=== PATIENT | male | born 1965 | race Caucasian/White ===

== ENCOUNTER → 2017-10-09 11:46 | Outpatient (CLI) | payer BC, SELFPAY | PROVIDERS: PCP Family Medicine; Visit Provider Internal Medicine | DX: M79.2 Neuralgia and neuritis, unspecified (principal) | CPT/HCPCS: 95885; 95909 ==

== ENCOUNTER → 2018-01-02 09:05 | Outpatient (CLI) | payer OTHER, SELFPAY ==
[2018-01-02 09:55] LABS: Add Manual Diff / Slide Review NO; Eosinophils Percent Auto 6.7 % (2-4); Hematocrit 45.5 % (41-53); Hemoglobin 16.1 g/dL (13.5-17.5); Lymphocytes Percent Auto 36.3 % (25-40); Mean Corpuscular HGB Conc 35.4 % (30-36); Mean Corpuscular Hemoglobin 33.2 PG (26-34); Mean Corpuscular Volume 93.6 fL (80-100); Monocytes Percent Auto 7.2 % (3-14); Neutrophils Absolute Auto 2400 /uL (3000-5900); Neutrophils Percent Auto 48.8 % (50-75); Platelet Count 158 X10^3/uL (150-400); Red Blood Cell Count 4.86 X10^6/uL (4.5-5.9)
[2018-01-02 10:25] LABS: Alanine Aminotransferase 39 IU/L (21-72); Albumin 4.3 g/dL (3.5-5.0); Albumin Globulin Ratio 1.7 (1.0-2.8); Alkaline Phosphatase 40 U/L (38-126); Aspartate Aminotransferase 29 IU/L (17-59); Bilirubin Total 0.8 mg/dL (0.2-1.3); Blood Urea Nitrogen 22 mg/dL (9-20); Calcium 9.3 mg/dL (8.4-10.2); Carbon Dioxide 30 mmol/L (22-32); Chloride 103 mmol/L (98-107); Cholesterol 212 mg/dL (140-199); Estimated Glomerular Filt Rate > 60.0 mL/min (>60); Globulin 2.6 g/dL (1.7-4.1); Glucose 117 mg/dL (70-100); HDL Cholesterol 55 mg/dL (40-60); HEMOLYSIS < 15 (0-50); LDL Cholesterol Calculated 108 mg/dL (<100); Potassium 4.4 mmol/L (3.4-5.1); Sodium 141 mmol/L (137-145); Total Protein 6.9 g/dL (6.3-8.2); Triglycerides 244 mg/dL (35-150)
[2018-01-02 10:30] LABS: Erythrocyte Sedimentation Rate 1 MM/HR (0-15)
[2018-01-02 10:32] LABS: Hemoglobin A1C% w Est Avg Glu 5.5 % (4.0-6.0)
[2018-01-02 10:52] LABS: TSH w/ Reflex to FT4 4.02 uIU/mL (0.47-4.68)
[2018-01-02 11:11] LABS: Vitamin B12 371 pg/mL (239-931)
[2018-01-02 15:35] LABS: Creatinine Urine Random 175.7 mg/dL
[2018-01-02 15:37] LABS: Microalbumi Creatinin Ratio Ur 7.9 ug/mg CR (<30); Microalbumin Urine Random 1.4 mg/dL (0-1.6)
== END ==
PROVIDERS: Visit Provider Registered Nurse
DX: E66.9 Obesity, unspecified (principal); G62.9 Polyneuropathy, unspecified; R03.0 Elevated blood-pressure reading, without diagnosis of hypertension
CPT/HCPCS: 36415; 80053; 80061; 82043; 82570; 82607; 83036; 84443; 85025; 85651

== ENCOUNTER → 2018-08-11 11:57 | Outpatient (CLI) | payer OTHER, SELFPAY ==
[2018-08-11 12:26] LABS: Hemoglobin A1C% w Est Avg Glu 5.5 % (4.0-6.0)
[2018-08-11 12:35] LABS: Cholesterol 195 mg/dL (140-199); HDL Cholesterol 35 mg/dL (40-60); LDL Cholesterol Calculated 139 mg/dL (<100); Triglycerides 104 mg/dL (35-150)
== END ==
PROVIDERS: Visit Provider Registered Nurse
DX: R73.9 Hyperglycemia, unspecified (principal); E78.5 Hyperlipidemia, unspecified
CPT/HCPCS: 36415; 80061; 83036

== ENCOUNTER → 2018-09-09 08:40 | Outpatient (CLI) | payer OTHER, SELFPAY ==
[2018-09-09 09:46] LABS: Add Manual Diff / Slide Review NO; Basophils Absolute Auto 100 /uL (0-100); Basophils Percent Auto 1.1 % (0-2); Eosinophils Absolute Auto 500 /uL (0-450); Eosinophils Percent Auto 10.1 % (2-4); Hematocrit 46.7 % (41-53); Hemoglobin 15.8 g/dL (13.5-17.5); Lymphocytes Absolute Auto 1800 /uL (1100-4500); Lymphocytes Percent Auto 39.7 % (25-40); Mean Corpuscular HGB Conc 33.9 % (30-36); Mean Corpuscular Hemoglobin 31.7 PG (26-34); Mean Corpuscular Volume 93.6 fL (80-100); Monocytes Absolute Auto 300 /uL (0-900); Monocytes Percent Auto 7.5 % (3-14); Neutrophils Absolute Auto 1900 /uL (1500-7000); Neutrophils Percent Auto 41.6 % (50-75); Platelet Count 177 X10^3/uL (150-400); Red Blood Cell Count 4.98 X10^6/uL (4.5-5.9); White Blood Cell Count 4.6 X10^3/uL (4.5-11.0)
[2018-09-09 09:54] LABS: Alanine Aminotransferase 31 IU/L (21-72); Albumin 4.6 g/dL (3.5-5.0); Albumin Globulin Ratio 1.5 (1.0-2.8); Alkaline Phosphatase 43 U/L (38-126); Aspartate Aminotransferase 27 IU/L (17-59); Bilirubin Total 1.2 mg/dL (0.2-1.3); Blood Urea Nitrogen 23 mg/dL (9-20); Calcium 9.5 mg/dL (8.4-10.2); Carbon Dioxide 29 mmol/L (22-32); Chloride 101 mmol/L (98-107); Creatine Kinase 93 U/L (55-170); Estimated Glomerular Filt Rate > 60.0 mL/min (>60); Globulin 3.1 g/dL (1.7-4.1); Glucose 116 mg/dL (70-100); Potassium 4.2 mmol/L (3.4-5.1); Sodium 138 mmol/L (137-145); Total Protein 7.7 g/dL (6.3-8.2)
[2018-09-09 10:27] LABS: Thyroid Stimulating Hormone 4.37 uIU/mL (0.47-4.68)
[2018-09-09 10:29] LABS: Erythrocyte Sedimentation Rate 1 MM/HR (0-15)
[2018-09-09 10:45] LABS: C-Reactive Protein Quant 0.5 mg/dL (<1.0); HEMOLYSIS < 15 (0-50)
[2018-09-09 13:04] LABS: Prostate Specific Antigen Scrn 0.987 ng/mL (0.1-4.0)
[2018-09-09 13:22] LABS: Vitamin B12 407 pg/mL (239-931)
== END ==
PROVIDERS: PCP Internal Medicine; Visit Provider Internal Medicine
DX: E78.5 Hyperlipidemia, unspecified (principal); R25.2 Cramp and spasm; R73.9 Hyperglycemia, unspecified; Z12.5 Encounter for screening for malignant neoplasm of prostate
CPT/HCPCS: 36415; 80053; 82550; 82607; 84439; 84443; 85025; 85651; 86140; G0103

== ENCOUNTER 2019-09-20 11:36 | Emergency (ER) | payer OTHER, SELFPAY ==
[2019-09-20 11:43] VITALS: BP 173/98; PULSE 73; RESP 14; TEMP 36.7; O2SAT 99
--- NOTE | 2019-09-20 19:28 | ED.GENADULT ---
HPI - General Adult General Chief complaint: Hypertension Stated complaint: High blood pressure Source: patient Mode of arrival: Ambulatory Limitations: no limitations History of Present Illness HPI narrative: The patient was not seen or evaluated by myself. He left without being interviewed or examined. His left without treatment. Related Data Home Medications Medication Instructions Recorded Confirmed budesonide-formoterol [Symbicort] 1 inh INH BID #0 04/24/17 10/13/18 naproxen sodium 220 mg capsule 220 mg PO DAILY cap 10/13/18 10/13/18 Previous Rx's Medication Instructions Recorded typhoid vaccin,live,attenuated 2 See Rx Instructions PO .COMPLEX #4 07/13/19 billion unit capsule,delayed cap release Allergies Allergy/AdvReac Type Severity Reaction Status Date / Time No Known Drug Allergies Allergy Verified 09/20/19 11:46 Patient History Medical History (Updated 09/20/19 @ 14:57 by Reena Desai RN) Chronic headaches (Chronic 2014) History of adenomatous polyp of colon (Inactive) Hyperglycemia (Chronic 11/02/15) Hyperlipidemia (Resolved 11/02/15) Mild intermittent asthma without complication (Chronic 11/02/15) Social History Smoking Status: Former smoker alcohol intake: former substance use type: does not use Smoking Status: Former smoker alcohol intake frequency: a few times a week Substance Use Type: does not use Exam Initial Vital Signs Initial Vital Signs: Vital Signs Temperature 98.1 F 09/20/19 11:43 Pulse Rate 73 09/20/19 11:43 Respiratory Rate 14 09/20/19 11:43 Blood Pressure 173/98 H 09/20/19 11:43 Pulse Oximetry 99 09/20/19 11:43 Course Vital Signs Vital signs: Vital Signs - 8 hr 09/20/19 11:43 Temperature 98.1 F Pulse Rate 73 Respiratory Rate 14 Blood Pressure 173/98 H Pulse Oximetry 99 Discharge Plan Departure Patient Disposition: Left Without Being Seen Clinical Impression: Patient left without being seen Discharge Date/Time: 09/20/19 14:57
== END 2019-09-20 14:57 | disposition left against medical advice (07) ==
PROVIDERS: Emergency Provider Emergency Medicine; PCP Internal Medicine
CPT/HCPCS: 99281

== ENCOUNTER → 2019-09-22 10:17 | Outpatient (CLI) | payer OTHER, SELFPAY ==
[2019-09-22 11:01] LABS: Add Manual Diff / Slide Review NO; Basophils Absolute Auto 0 /uL (0-100); Basophils Percent Auto 0.7 % (0-2); Eosinophils Absolute Auto 200 /uL (0-450); Eosinophils Percent Auto 4.3 % (2-4); Hematocrit 48.3 % (41-53); Hemoglobin 16.3 g/dL (13.5-17.5); Lymphocytes Absolute Auto 2000 /uL (1100-4500); Lymphocytes Percent Auto 35.6 % (25-40); Mean Corpuscular HGB Conc 33.8 % (30-36); Mean Corpuscular Hemoglobin 31.8 PG (26-34); Mean Corpuscular Volume 94.2 fL (80-100); Monocytes Absolute Auto 400 /uL (0-900); Monocytes Percent Auto 6.3 % (3-14); Neutrophils Absolute Auto 3000 /uL (1500-7000); Neutrophils Percent Auto 53.1 % (50-75); Platelet Count 191 X10^3/uL (150-400); Red Blood Cell Count 5.13 X10^6/uL (4.5-5.9); Red Cell Distribution Width 13.5 % (11.6-14.8); White Blood Cell Count 5.6 X10^3/uL (4.5-11.0)
[2019-09-22 11:27] LABS: Erythrocyte Sedimentation Rate 1 MM/HR (0-15)
[2019-09-22 11:30] LABS: Alanine Aminotransferase 43 IU/L (<50); Albumin 4.7 g/dL (3.5-5.0); Albumin Globulin Ratio 1.5 (1.0-2.8); Alkaline Phosphatase 38 U/L (38-126); Aspartate Aminotransferase 37 IU/L (17-59); BUN Creatinine Ratio 16.4 (6-22); Bilirubin Total 1.2 mg/dL (0.2-1.3); Blood Urea Nitrogen 18 mg/dL (9-20); Calcium 9.6 mg/dL (8.4-10.2); Carbon Dioxide 29 mmol/L (22-32); Chloride 102 mmol/L (98-107); Cholesterol 212 mg/dL (140-199); Estimated Glomerular Filt Rate > 60.0 mL/min (>60); Globulin 3.2 g/dL (1.7-4.1); Glucose 119 mg/dL (70-100); HDL Cholesterol 38 mg/dL (40-60); HEMOLYSIS 22 (0-50); LDL Cholesterol Calculated 142 mg/dL (<100); Potassium 4.7 mmol/L (3.4-5.1); Sodium 140 mmol/L (137-145); Total Protein 7.9 g/dL (6.3-8.2); Triglycerides 161 mg/dL (35-150)
[2019-09-22 11:36] LABS: C-Reactive Protein Quant < 0.5 mg/dL (<1.0)
[2019-09-22 11:38] LABS: Free T4, Direct Thyroxine 1.12 ng/dL (0.78-2.19)
[2019-09-22 11:50] LABS: Prostate Specific Antigen Scrn 1.14 ng/mL (0.1-4.0)
[2019-09-22 11:52] LABS: Thyroid Stimulating Hormone 2.76 uIU/mL (0.47-4.68)
== END ==
PROVIDERS: PCP Internal Medicine; Referring Provider Internal Medicine; Visit Provider Internal Medicine
DX: Z13.220 Encounter for screening for lipoid disorders (principal); Z13.6 Encounter for screening for cardiovascular disorders; Z12.5 Encounter for screening for malignant neoplasm of prostate; I10 Essential (primary) hypertension; J45.20 Mild intermittent asthma, uncomplicated; R73.9 Hyperglycemia, unspecified
CPT/HCPCS: 36415; 80053; 80061; 84439; 84443; 85025; 85651; 86140; G0103

== ENCOUNTER 2019-12-11 00:50 | Emergency (ER) | payer OTHER, SELFPAY ==
[2019-12-11] VITALS (9 sets, daily range): BP systolic 120–160; BP diastolic 71–95; PULSE 60–77; RESP 13–17; TEMP 36.7; O2SAT 96–100; BMI 31.0
--- NOTE | 2019-12-11 00:54 | ED_ITS ---
HPI - General Adult General Chief complaint: Chest Pain Stated complaint: state blood out of control, chest pain Time Seen by Provider: 12/11/19 00:54 History of Present Illness HPI narrative: 54-year-old gentleman with essential hypertension diagnosed in September of this year. He was initially started on lisinopril and after a month noted significant tinnitus and this was discontinued in October. With exercise, decreased salt dietary changes he was able to get his blood pressure down to the 135/80 range. By mid November he notes that the blood pressures were creeping up and he was seen by his primary care physician and prescribed a medication similar to lisinopril and after a single dose noted the return of tenderness. Medications were again discontinued and again blood pressures began to creep up. 48 hours ago he spoke with his primary care physician who started him on amlodipine 10 mg. Patient had some time to do some reading and decided that the higher dose was more than he probably needed so yesterday took 5 mg of amlodipine in the morning and was feeling somewhat better but by the afternoon noticed the blood pressures continued to increase to a high of 160/90 in the afternoon. At that point he took an additional 5 mg of amlodipine. Continued anxiety over the course of the evening and complaints of slight chest tightness brought him to the emergency room. He notes no fevers, cough, dyspnea or wheezing. Complains of mild chest tightness associated with anxiety related to his blood pressure, no orthopnea, no lower extremity edema, no acute neurologic findings or complaints, no overt chest pain or increasing edema. Related Data Previous Rx's Medication Instructions Recorded amlodipine 10 mg tablet 10 mg PO DAILY #30 tab 12/09/19 Allergies Allergy/AdvReac Type Severity Reaction Status Date / Time lisinopril AdvReac Intermediate Ringing in Verified 10/05/19 10:20 Ears olmesartan AdvReac Ringing in Verified 12/09/19 09:26 ears Review of Systems Review of Systems Narrative: Remainder of review of systems including constitutional, ENT, cardiovascular, respiratory, GI, , musculoskeletal, skin, neurologic and psychiatric systems reviewed and are unremarkable except as noted in HPI. Patient History Medical History Chronic headaches (Chronic 2014) Essential hypertension (Acute) History of adenomatous polyp of colon (Inactive) Hyperglycemia (Chronic 11/02/15) Hyperlipidemia (Resolved 11/02/15) Mild intermittent asthma without complication (Chronic 11/02/15) Family History Father Valvular heart disease History of aortic valve replacement Social History Smoking Status: Former smoker alcohol intake: former substance use type: does not use Smoking Status: Former smoker alcohol intake frequency: a few times a week Substance Use Type: does not use Exam Narrative Exam Narrative: General: Healthy appearing, in no acute distress. Able to give a complete and coherent history. Well-nourished well-developed HEENT: Moist mucous membranes, normal sclera with reactive pupils, Neck: No JVD, supple Respiratory: Lungs are clear to auscultation, no wheezing no rales no rhonchi. Full and symmetrical air movement Cardiac: Regular rate and rhythm no murmurs no bruits Abdomen: Soft nontender good bowel tones, no flank pain Skin: Warm and dry, no rashes Neurologic: Grossly neurologically intact with no obvious asymmetries or abnormalities Extremities: No trauma, well perfused Psych: Cooperative, appropriate insight and affect Initial Vital Signs Initial Vital Signs: Vital Signs Pulse Rate 73 12/11/19 00:56 Pulse Oximetry 99 12/11/19 00:56 Course Orders Ordered: ED Orders 12/11/19 01:15 Complete Blood Count AUTO DIFF Stat Comprehensive Metabolic Panel Stat Lipase Stat Partial Thromboplastin Time Stat Prothrombin Time INR Stat Troponin & CK Cardiac Panel Stat 12/11/19 01:25 XR chest 1V Stat EKG-12 Lead Stat Vital Signs Vital signs: Vital Signs - 8 hr 12/11/19 00:56 12/11/19 01:00 12/11/19 01:05 Temperature 98.1 F Pulse Rate 73 66 77 Respiratory Rate 16 Blood Pressure 153/87 H Pulse Oximetry 99 98 100 12/11/19 01:12 12/11/19 01:30 12/11/19 01:31 Temperature Pulse Rate 73 64 66 Respiratory Rate 17 15 Blood Pressure 160/95 H 140/75 Pulse Oximetry 97 97 98 12/11/19 02:00 12/11/19 02:30 12/11/19 03:00 Temperature Pulse Rate 60 61 62 Respiratory Rate 15 16 13 Blood Pressure 120/79 122/71 122/75 Pulse Oximetry 96 96 96 Medical Decision Making Medical Records Medical records reviewed: Yes I reviewed the patient's medical records. Lab Data Lab results reviewed: Yes I reviewed the patient's lab results. Result diagrams: 12/11/19 01:15 12/11/19 01:15 Labs: Lab Results 12/11/19 12/11/19 12/11/19 Range/Units 01:15 01:15 01:15 WBC 5.2 (4.5-11.0) X10^3/uL RBC 4.72 (4.5-5.9) X10^6/uL Hgb 15.1 (13.5-17.5) g/dL Hct 44.3 (41-53) % MCV 93.8 (80-100) fL MCH 32.0 (26-34) PG MCHC 34.2 (30-36) % RDW 14.4 (11.6-14.8) % Plt Count 182 (150-400) X10^3/uL Neut % (Auto) 48.6 L (50-75) % Lymph % (Auto) 36.5 (25-40) % [place] % (Auto) 7.4 (3-14) % Eos % (Auto) 6.8 H (2-4) % Baso % (Auto) 0.7 (0-2) % Neut # (Auto) 2500 (3536-0113) /uL Lymph # (Auto) 1900 (7723-5237) /uL [place] # (Auto) 400 (0-900) /uL Eos # (Auto) 400 (0-450) /uL Baso # (Auto) 0 (0-100) /uL PT 11.5 (10.1-12.7) SECONDS INR 1.0 (0.9-1.3) APTT 32 (26.4-36.2) SECONDS Sodium 137 (137-145) mmol/L Potassium 3.7 (3.4-5.1) mmol/L Chloride 104 (98-107) mmol/L Carbon Dioxide 26 (22-32) mmol/L BUN 18 (9-20) mg/dL Creatinine 1.03 (0.66-1.25) mg/dL Estimated GFR > 60.0 (>60) mL/min BUN/Creatinine Ratio 17.5 (6-22) Glucose 108 H (70-100) mg/dL Calcium 9.4 (8.4-10.2) mg/dL Total Bilirubin 1.5 H (0.2-1.3) mg/dL AST 34 (17-59) IU/L ALT 26 (<50) IU/L Alkaline Phosphatase 50 (38-126) U/L Total Creatine Kinase 98 (55-170) U/L CK-MB (CK-2) TNP CK-MB (CK-2) Rel Index TNP Troponin I < 0.012 (0.01-0.034) ng/mL Total Protein 7.1 (6.3-8.2) g/dL Albumin 4.4 (3.5-5.0) g/dL Globulin 2.7 (1.7-4.1) g/dL Albumin/Globulin Ratio 1.6 (1.0-2.8) Lipase 68 (23-300) U/L Imaging Data Chest x-ray: Attestation: I personally reviewed and interpreted this imaging study as follows: My Impression: Normal chest x-ray without infiltrate or cardiomegaly. ECG Data Attestation: I personally reviewed and interpreted this ECG as follows: Interpretation: Sinus rhythm at a rate of 66 Left axis deviation with incomplete right bundle branch block No acute ischemic changes MDM Narrative Medical decision making narrative: 54-year-old gentleman with concerns regarding blood pressure. Blood pressure on arrival was 153/87 and continued to decrease in was 122/75 discharge. No secondary symptoms of severe or uncontrolled hypertension. Reassurance is given regarding normal workup at this point. Recommended allowing the 10 mg of amlodipine to get to pharmacologic steady state prior to checking any blood pressures again. He will be following up with Dr. Yepez and we reviewed signs and symptoms of stroke acute coronary syndrome and how they can be related to hypertensive emergencies. He is safe for home discharge Discharge Plan Departure Patient Disposition: Home Clinical Impression: Essential hypertension Discharge Date/Time: 12/11/19 03:21 Instructions: DI for High Blood Pressure Activity Restrictions/Additional Instructions: Thank you for coming in today. Your blood pressure was elevated when he got here however over the course of your arm urgency room visit is come down nicely as the amlodipine you took this afternoon is working. You had a thorough workup in the emergency department and your blood work, x-ray and EKG were all very reassuring. There is no evidence of acute heart damage or kidney damage. There certainly is an anxiety component to the elevated blood pressures you are having. Now that we have looked to prove that the higher blood pressures and not causing significant emergent damage, I am going to suggest that you take the 10 mg of amlodipine once a day for a full 5 days to get to consistent level in your blood stream before you begin rechecking blood pressures. By Friday, please check your blood pressure once a day only and typically a few hours after your morning blood pressure dose is going to be the most useful measure. Reasons to return to the emergency room include significantly elevated blood pr essure (greater than 200/100) and acute symptoms of chest pain, shortness of breath, severe headache with numbness tingling or difficulty in functioning or thinking. Please schedule follow-up with Dr. Yepez. Prescriptions: No Action amlodipine 10 mg tablet 10 mg PO DAILY Qty: 30 RF: 3 Referrals: Kishor Yepez MD [Primary Care Provider] -
--- NOTE | 2019-12-11 01:25 | DI.RAD.S_ITS ---
PROCEDURE: XR CHEST 1V INDICATIONS: chest pain TECHNIQUE: One view of the chest was acquired. COMPARISON: [facility], CR, CHEST 2 VIEW, 07/21/2012, 0:30. [facility], CT, THORAX WITHOUT CONTRAST, 08/11/2012, 8:23. [facility], CR, CHEST 2 VIEW, 10/03/2015, 15:24. FINDINGS: Surgical changes and devices: None. Lungs and pleura: Lungs are clear. No pleural effusions or pneumothorax. Mediastinum: Mediastinal contours appear normal. Heart size is normal. Bones and chest wall: No suspicious bony lesions. Age-appropriate bony degenerative changes are seen. Overlying soft tissues appear unremarkable. IMPRESSION: Plain film study within normal limits for age. Dictated by: Man Amaral M.D. on 12/11/2019 at 7:44 Approved by: Man Amaral M.D. on 12/11/2019 at 7:45
[2019-12-11 01:33] LABS: Add Manual Diff / Slide Review NO; Basophils Absolute Auto 0 /uL (0-100); Basophils Percent Auto 0.7 % (0-2); Eosinophils Absolute Auto 400 /uL (0-450); Eosinophils Percent Auto 6.8 % (2-4); Hematocrit 44.3 % (41-53); Hemoglobin 15.1 g/dL (13.5-17.5); Lymphocytes Absolute Auto 1900 /uL (1100-4500); Lymphocytes Percent Auto 36.5 % (25-40); Mean Corpuscular HGB Conc 34.2 % (30-36); Mean Corpuscular Volume 93.8 fL (80-100); Monocytes Absolute Auto 400 /uL (0-900); Monocytes Percent Auto 7.4 % (3-14); Neutrophils Absolute Auto 2500 /uL (1500-7000); Neutrophils Percent Auto 48.6 % (50-75); Platelet Count 182 X10^3/uL (150-400); Prothrombin Time 11.5 SECONDS (10.1-12.7); Red Blood Cell Count 4.72 X10^6/uL (4.5-5.9); Red Cell Distribution Width 14.4 % (11.6-14.8); White Blood Cell Count 5.2 X10^3/uL (4.5-11.0)
[2019-12-11 01:35] LABS: PTT Partial Thromboplastin Tim 32 SECONDS (26.4-36.2)
[2019-12-11 01:37] LABS: Alanine Aminotransferase 26 IU/L (<50); Albumin 4.4 g/dL (3.5-5.0); Albumin Globulin Ratio 1.6 (1.0-2.8); Alkaline Phosphatase 50 U/L (38-126); Aspartate Aminotransferase 34 IU/L (17-59); BUN Creatinine Ratio 17.5 (6-22); Bilirubin Total 1.5 mg/dL (0.2-1.3); Blood Urea Nitrogen 18 mg/dL (9-20); Calcium 9.4 mg/dL (8.4-10.2); Carbon Dioxide 26 mmol/L (22-32); Chloride 104 mmol/L (98-107); Creatine Kinase 98 U/L (55-170); Estimated Glomerular Filt Rate > 60.0 mL/min (>60); Globulin 2.7 g/dL (1.7-4.1); Glucose 108 mg/dL (70-100); HEMOLYSIS 22 (0-50); Lipase 68 U/L (23-300); Potassium 3.7 mmol/L (3.4-5.1); Sodium 137 mmol/L (137-145); Total Protein 7.1 g/dL (6.3-8.2)
[2019-12-11 01:49] LABS: Troponin I < 0.012 ng/mL (0.01-0.034)
--- NOTE | 2019-12-11 02:21 | PC.NURSE ---
Pt states prescription of amlodipine is 10mg daily. Took half tab in AM because was worried about side effects. When blood pressure was increasing, in PM, to second half of a 10mg tab.
== END 2019-12-11 03:21 | disposition home or self-care (01) ==
PROVIDERS: Emergency Provider Emergency Medicine; PCP Internal Medicine
DX: I11.0 Hypertensive heart disease with heart failure (principal); R07.9 Chest pain, unspecified
CPT/HCPCS: 36415; 71045; 80053; 82550; 83690; 84484; 85025; 85610; 85730; 99284

== ENCOUNTER → 2020-03-02 09:48 | Outpatient (CLI) | payer OTHER, SELFPAY ==
[2020-03-02 11:19] LABS: BUN Creatinine Ratio 18.4 (6-22); Blood Urea Nitrogen 19 mg/dL (9-20); Calcium 9.1 mg/dL (8.4-10.2); Carbon Dioxide 31 mmol/L (22-32); Chloride 103 mmol/L (98-107); Estimated Glomerular Filt Rate > 60.0 mL/min (>60); Glucose 124 mg/dL (70-100); HEMOLYSIS < 15 (0-50); Potassium 4.2 mmol/L (3.4-5.1); Sodium 139 mmol/L (137-145)
== END ==
PROVIDERS: PCP Internal Medicine; Referring Provider Internal Medicine Cardiovascular Disease; Visit Provider Internal Medicine Cardiovascular Disease
DX: I10 Essential (primary) hypertension (principal)
CPT/HCPCS: 36415; 80048

== ENCOUNTER → 2020-04-26 12:47 | Outpatient (CLI) | payer OTHER, SELFPAY ==
--- NOTE | 2020-04-26 | DI.US.S_ITS ---
PROCEDURE: US RENAL COMPLETE INDICATIONS: Essential (primary) hypertension TECHNIQUE: Real-time scanning was performed of the kidneys and bladder, with image documentation. COMPARISON: None. FINDINGS: Kidneys: Kidneys are normal in size. Right kidney measures 11.1 cm long; left kidney measures 10.9 cm long. Right renal cortical thickness is 2.6 cm; left renal cortical thickness is 1.6 cm. Renal cortical echotexture is normal. No hydronephrosis. Prominent column of [place] within the left kidney. There are bilateral punctate echogenic foci presumably nephrolithiasis. Bladder: Pre-void bladder volume is 119 mL. Post-void residual is 12 mL. Pre-void images demonstrate no intraluminal masses or stones. On pre-void images, both of the ureteral jets are noted with color Doppler interrogation. (Of note, ureteral jets may not be detectable in up to 25% of cases due to insufficient differences in specific gravity between ureteral and bladder urine). Miscellaneous: No free pelvic fluid. IMPRESSION: Suspect nonobstructive bilateral nephrolithiasis, which could be confirmed with CT KUB as clinically necessary. Presumed prominent hypertrophied column of [place] involving the left kidney (favored over mass). If clinically suspicious, a follow-up ultrasound could be performed in 6 months to demonstrate stability Dictated by: Isiah Miller M.D. on 04/26/2020 at 14:50 Approved by: Isiah Miller M.D. on 04/26/2020 at 14:57
== END ==
PROVIDERS: PCP Internal Medicine; Referring Provider Internal Medicine; Visit Provider Internal Medicine Cardiovascular Disease
DX: I10 Essential (primary) hypertension (principal)
CPT/HCPCS: 76770

== ENCOUNTER → 2020-05-16 09:06 | Outpatient (CLI) | payer OTHER, SELFPAY ==
[2020-05-16 10:21] LABS: Add Manual Diff / Slide Review NO; Basophils Absolute Auto 100 /uL (0-100); Basophils Percent Auto 1.5 % (0-2); Eosinophils Absolute Auto 400 /uL (0-450); Eosinophils Percent Auto 8.3 % (2-4); Hemoglobin 15.3 g/dL (13.5-17.5); Lymphocytes Absolute Auto 1800 /uL (1100-4500); Lymphocytes Percent Auto 39.3 % (25-40); Mean Corpuscular Hemoglobin 32.1 PG (26-34); Mean Corpuscular Volume 94.4 fL (80-100); Monocytes Absolute Auto 300 /uL (0-900); Monocytes Percent Auto 6.6 % (3-14); Neutrophils Absolute Auto 2100 /uL (1500-7000); Neutrophils Percent Auto 44.3 % (50-75); Platelet Count 164 X10^3/uL (150-400); Red Blood Cell Count 4.77 X10^6/uL (4.5-5.9); Red Cell Distribution Width 13.7 % (11.6-14.8); White Blood Cell Count 4.7 X10^3/uL (4.5-11.0)
[2020-05-16 10:28] LABS: Hemoglobin A1C% w Est Avg Glu 5.5 % (4.0-6.0)
[2020-05-16 10:35] LABS: Alanine Aminotransferase 27 IU/L (<50); Albumin 4.1 g/dL (3.5-5.0); Albumin Globulin Ratio 1.4 (1.0-2.8); Alkaline Phosphatase 40 U/L (38-126); Aspartate Aminotransferase 31 IU/L (17-59); BUN Creatinine Ratio 15.2 (6-22); Bilirubin Total 0.9 mg/dL (0.2-1.3); Blood Urea Nitrogen 16 mg/dL (9-20); Calcium 9.1 mg/dL (8.4-10.2); Carbon Dioxide 32 mmol/L (22-32); Chloride 102 mmol/L (98-107); Cholesterol 170 mg/dL (140-199); Estimated Glomerular Filt Rate > 60.0 mL/min (>60); Glucose 101 mg/dL (70-100); HDL Cholesterol 47 mg/dL (40-60); HEMOLYSIS 31 (0-50); LDL Cholesterol Calculated 95 mg/dL (<100); Potassium 4.4 mmol/L (3.4-5.1); Sodium 138 mmol/L (137-145); Total Protein 7.1 g/dL (6.3-8.2); Triglycerides 140 mg/dL (35-150)
[2020-05-16 11:03] LABS: Prostate Specific Antigen Scrn 1.39 ng/mL (0.1-4.0)
== END ==
PROVIDERS: PCP Family Medicine; Referring Provider Family Medicine; Visit Provider Family Medicine
DX: I10 Essential (primary) hypertension (principal); R73.01 Impaired fasting glucose; R73.9 Hyperglycemia, unspecified; Z12.5 Encounter for screening for malignant neoplasm of prostate
CPT/HCPCS: 36415; 80053; 80061; 83036; 85025; G0103

== ENCOUNTER → 2020-06-19 12:46 | Outpatient (CLI) | payer OTHER, SELFPAY ==
[2020-06-19 14:18] LABS: Cortisol Random 9.75 ug/dL
[2020-06-27 05:49] LABS: Renin Activity 0.665 ng/mL/hr (0.167-5.380)
== END ==
PROVIDERS: PCP Family Medicine; Referring Provider Internal Medicine Cardiovascular Disease; Visit Provider Internal Medicine Cardiovascular Disease
DX: I10 Essential (primary) hypertension (principal)
CPT/HCPCS: 36415; 82088; 82384; 82533; 84244

== ENCOUNTER → 2020-12-12 07:18 | Outpatient (CLI) | payer OTHER, SELFPAY ==
[2020-12-12 08:48] LABS: Alanine Aminotransferase 27 IU/L (<50); Albumin 3.9 g/dL (3.5-5.0); Albumin Globulin Ratio 1.6 (1.0-2.8); Alkaline Phosphatase 39 U/L (38-126); Aspartate Aminotransferase 28 IU/L (17-59); BUN Creatinine Ratio 20.8 (6-22); Bilirubin Total 0.7 mg/dL (0.2-1.3); Blood Urea Nitrogen 21 mg/dL (9-20); Calcium 9.2 mg/dL (8.4-10.2); Carbon Dioxide 30 mmol/L (22-32); Chloride 103 mmol/L (98-107); Cholesterol 169 mg/dL (140-199); Estimated Glomerular Filt Rate > 60.0 mL/min (>60); Globulin 2.5 g/dL (1.7-4.1); Glucose 117 mg/dL (70-100); HDL Cholesterol 50 mg/dL (40-60); HEMOLYSIS < 15 (0-50); LDL Cholesterol Calculated 92 mg/dL (<100); Potassium 4.4 mmol/L (3.4-5.1); Sodium 140 mmol/L (137-145); Total Protein 6.4 g/dL (6.3-8.2); Triglycerides 136 mg/dL (35-150)
[2020-12-12 09:13] LABS: Creatinine Urine Random 141.5 mg/dL
[2020-12-12 09:18] LABS: Microalbumin Urine Random < 0.6 mg/dL (0-1.6)
== END ==
PROVIDERS: PCP Family Medicine; Referring Provider Family Medicine; Visit Provider Family Medicine
DX: I10 Essential (primary) hypertension (principal); R73.9 Hyperglycemia, unspecified
CPT/HCPCS: 36415; 80053; 80061; 82043; 82570; 84443

== ENCOUNTER → 2022-03-13 08:23 | Outpatient (CLI) | payer OTHER, SELFPAY ==
[2022-03-13 10:21] LABS: Add Manual Diff / Slide Review NO; Basophils Absolute Auto 0 /uL (0-100); Eosinophils Absolute Auto 300 /uL (0-450); Eosinophils Percent Auto 7.2 % (2-4); Hematocrit 45.9 % (41-53); Hemoglobin 15.4 g/dL (13.5-17.5); Lymphocytes Absolute Auto 1400 /uL (1100-4500); Lymphocytes Percent Auto 35.1 % (25-40); Mean Corpuscular HGB Conc 33.6 % (30-36); Mean Corpuscular Hemoglobin 31.7 PG (26-34); Mean Corpuscular Volume 94.3 fL (80-100); Monocytes Absolute Auto 400 /uL (0-900); Monocytes Percent Auto 9.8 % (3-14); Neutrophils Absolute Auto 1900 /uL (1500-7000); Neutrophils Percent Auto 46.9 % (50-75); Platelet Count 171 X10^3/uL (150-400); Red Blood Cell Count 4.87 X10^6/uL (4.5-5.9); Red Cell Distribution Width 14.3 % (11.6-14.8)
[2022-03-13 10:33] LABS: Hemoglobin A1C% w Est Avg Glu 5.2 % (4.0-6.0)
[2022-03-13 10:52] LABS: Alanine Aminotransferase 29 IU/L (<50); Albumin 4.3 g/dL (3.5-5.0); Albumin Globulin Ratio 1.7 (1.0-2.8); Alkaline Phosphatase 44 U/L (38-126); Aspartate Aminotransferase 26 IU/L (17-59); BUN Creatinine Ratio 21.3 (6-22); Blood Urea Nitrogen 23 mg/dL (9-20); Calcium 9.1 mg/dL (8.4-10.2); Carbon Dioxide 27 mmol/L (22-32); Chloride 102 mmol/L (98-107); Cholesterol 172 mg/dL (140-199); Estimated Glomerular Filt Rate > 60 mL/min (>60); Globulin 2.6 g/dL (1.7-4.1); Glucose 103 mg/dL (70-100); HDL Cholesterol 60 mg/dL (40-60); HEMOLYSIS < 15 (0-50); LDL Cholesterol Calculated 97 mg/dL (<100); Potassium 4.4 mmol/L (3.4-5.1); Sodium 140 mmol/L (137-145); Total Protein 6.9 g/dL (6.3-8.2); Triglycerides 77 mg/dL (35-150)
[2022-03-13 11:16] LABS: TSH w/ Reflex to FT4 2.97 uIU/mL (0.47-4.68)
[2022-03-13 11:17] LABS: Creatinine Urine Random 137.3 mg/dL
[2022-03-13 11:20] LABS: Microalbumin Urine Random < 0.6 mg/dL (0-1.6)
[2022-03-13 11:23] LABS: Prostate Specific Antigen Scrn 1.16 ng/mL (0.1-4.0)
== END ==
PROVIDERS: PCP Family Medicine; Referring Provider Family Medicine; Visit Provider Family Medicine
DX: Z12.5 Encounter for screening for malignant neoplasm of prostate (principal); G89.29 Other chronic pain; I10 Essential (primary) hypertension; J45.20 Mild intermittent asthma, uncomplicated; R51.9 Headache, unspecified; R73.01 Impaired fasting glucose; R73.9 Hyperglycemia, unspecified; N52.9 Male erectile dysfunction, unspecified; R68.82 Decreased libido
CPT/HCPCS: 36415; 80053; 80061; 82043; 82570; 83036; 84402; 84403; 84443; 85025; G0103

== ENCOUNTER → 2023-07-18 08:41 | Outpatient (CLI) | payer OTHER, SELFPAY ==
[2023-07-18 09:56] LABS: Add Manual Diff / Slide Review NO; Basophils Absolute Auto 0 /uL (0-100); Basophils Percent Auto 0.9 % (0-2); Eosinophils Absolute Auto 300 /uL (0-450); Eosinophils Percent Auto 5.2 % (2-4); Hematocrit 43.7 % (41-53); Lymphocytes Absolute Auto 1600 /uL (1100-4500); Lymphocytes Percent Auto 32.6 % (25-40); Mean Corpuscular HGB Conc 34.2 % (30-36); Mean Corpuscular Hemoglobin 31.9 PG (26-34); Mean Corpuscular Volume 93.4 fL (80-100); Monocytes Absolute Auto 400 /uL (0-900); Monocytes Percent Auto 7.4 % (3-14); Neutrophils Absolute Auto 2600 /uL (1500-7000); Neutrophils Percent Auto 53.9 % (50-75); Platelet Count 194 X10^3/uL (150-400); Red Blood Cell Count 4.68 X10^6/uL (4.5-5.9); Red Cell Distribution Width 14.6 % (11.6-14.8); White Blood Cell Count 4.8 X10^3/uL (4.5-11.0)
[2023-07-18 10:00] LABS: Hemoglobin A1C% w Est Avg Glu 5.3 % (4.0-6.0)
[2023-07-18 10:06] LABS: Alanine Aminotransferase 23 IU/L (<50); Albumin 4.3 g/dL (3.5-5.0); Albumin Globulin Ratio 1.5 (1.0-2.8); Alkaline Phosphatase 45 U/L (38-126); Aspartate Aminotransferase 26 IU/L (17-59); Blood Urea Nitrogen 22 mg/dL (9-20); Calcium 9.5 mg/dL (8.4-10.2); Carbon Dioxide 29 mmol/L (22-32); Chloride 104 mmol/L (98-107); Cholesterol 186 mg/dL (140-199); Estimated Glomerular Filt Rate > 60 mL/min (>60); Gamma Glutamyl Transpeptidase 15 U/L (15-73); Globulin 2.9 g/dL (1.7-4.1); Glucose 110 mg/dL (70-100); HDL Cholesterol 67 mg/dL (40-60); HEMOLYSIS < 15 (0-50); LDL Cholesterol Calculated 103 mg/dL (<100); Phosphorous 3.4 mg/dL (2.5-4.5); Potassium 4.3 mmol/L (3.4-5.1); Sodium 138 mmol/L (137-145); Total Protein 7.2 g/dL (6.3-8.2); Triglycerides 79 mg/dL (35-150)
[2023-07-18 10:09] LABS: High Sensitivity CRP - Cardiac 1.6 mg/L (1.0-3.0)
[2023-07-18 10:12] LABS: Appearance Urine UA CLEAR; Bilirubin Urine UA NEGATIVE (NEGATIVE); Color Urine UA YELLOW; Glucose Urine UA NEGATIVE (Negative); Ketones Urine UA NEGATIVE (NEGATIVE); Leukocyte Esterase Urine UA NEGATIVE (NEGATIVE); Nitrite Urine UA NEGATIVE (Negative); Occult Blood Urine UA NEGATIVE (Negative); Protein Urine UA NEGATIVE (Negative); Urine Volume 10mL (spun); Urobilinogen Urine UA 0.2 E.U./dL (0.2); pH Urine UA 5.5 (4.5-8.0)
[2023-07-18 10:13] LABS: Bacteria Urine None Seen; Culture Indicated Urine Cult Not Indicated; RBC Urine None Seen (0-5/HPF); Squamous Epithelial Cell Urine None Seen (0-5/HPF); WBC Urine None Seen (0-5/HPF)
[2023-07-18 10:27] LABS: Erythrocyte Sedimentation Rate 1 MM/HR (0-15)
[2023-07-18 10:35] LABS: Prostate Specific Antigen Scrn 1.22 ng/mL (0.1-4.0)
[2023-07-18 10:39] LABS: Ferritin 275 ng/mL (18-464)
[2023-07-18 10:49] LABS: TSH w/ Reflex to FT4 3.02 uIU/mL (0.47-4.68)
[2023-07-18 10:57] LABS: Microalbumin Urine Random < 0.6 mg/dL (0-1.6)
[2023-07-22 04:44] LABS: Apolipoprotein B 85 mg/dL (<90); Homocysteine 10.6 umol/L (0.0-14.5)
[2023-07-22 08:14] LABS: C Peptide 1.5 ng/mL (1.1-4.4)
[2023-07-25 14:09] LABS: Insulin Level Total 3.6 uIU/mL (2.6-24.9)
[2023-07-26 17:40] LABS: Percent Free Testosterone 3.85 % (1.50-4.20); Testosterone Free 16.03 ng/dL (5.00-21.00); Testosterone Total 416.4 ng/dL (264.0-916.0)
== END ==
PROVIDERS: PCP Family Medicine; Referring Provider Family Medicine; Visit Provider Family Medicine
DX: Z00.00 Encounter for general adult medical examination without abnormal findings (principal); R73.01 Impaired fasting glucose; J45.20 Mild intermittent asthma, uncomplicated; I10 Essential (primary) hypertension; R68.82 Decreased libido; N52.9 Male erectile dysfunction, unspecified; Z12.5 Encounter for screening for malignant neoplasm of prostate
CPT/HCPCS: 36415; 80053; 80061; 81001; 82043; 82172; 82570; 82627; 82728; 82977; 83036; 83090; 83525; 83735; 84100; 84402; 84403; 84443; 84681; 85025; 85651; 86140; G0103

== ENCOUNTER 2023-11-07 10:53 | Emergency (ER) | payer OTHER, SELFPAY ==
--- NOTE | 2023-11-07 11:00 | DI.RAD.S_ITS ---
PROCEDURE: XR CHEST 1V INDICATIONS: chest pain TECHNIQUE: One view of the chest was acquired. COMPARISON: [facility], , XR CHEST 1V, 12/11/2019, 1:27. [facility], , CHEST 2 VIEW, 10/03/2015, 15:24. FINDINGS: Surgical changes and devices: None. Lungs and pleura: Lungs are clear. No pleural effusions or pneumothorax. Mediastinum: Mediastinal contours appear normal. Heart size is normal. Bones and chest wall: No suspicious bony lesions. Overlying soft tissues appear unremarkable. IMPRESSION: No acute cardiopulmonary abnormality is seen. Dictated by: Felipe Gallegos M.D. on 11/07/2023 at 11:40 Approved by: Felipe Gallegos M.D. on 11/07/2023 at 11:40
[2023-11-07 11:01] VITALS: BP 172/92; PULSE 72; RESP 12; TEMP 36.6; O2SAT 98; BMI 27.3
--- NOTE | 2023-11-07 11:05 | EKG_ITS ---
[place] [address] [address] [place] [id number] Test Date: 2023-11-07 Pat Name: Guillermo Fitzgerald Department: [facility] Room: Gender: Male Leadership Intern: JAIMEE : 1965 Requested By: Order Number: [id number] Reading MD: Aris Tariq Measurements Intervals [place] Rate: 64 P: 46 CA: 186 QRS: -45 QRSD: 102 T: 4 QT: 408 QTc: 420 Interpretive Statements Normal sinus rhythm Left axis deviation Minimal voltage criteria for LVH, may be normal variant ( R in aVL ) Electronically Signed On 11-09-2023 9:43:52 PDT by Aris Tariq
[2023-11-07 11:06] VITALS: PULSE 70; RESP 16; O2SAT 97
[2023-11-07] MEDS: ASPIRIN 81 MG CHEW TAB 324 MG PO (11:09)
[2023-11-07 11:13] VITALS: BP 151/85; PULSE 65; RESP 19; O2SAT 98
[2023-11-07 11:20] LABS: Add Manual Diff / Slide Review NO; Basophils Absolute Auto 0 /uL (0-100); Basophils Percent Auto 0.9 % (0-2); Eosinophils Absolute Auto 200 /uL (0-450); Eosinophils Percent Auto 4.8 % (2-4); Hematocrit 43.2 % (41-53); Hemoglobin 14.9 g/dL (13.5-17.5); Lymphocytes Absolute Auto 1700 /uL (1100-4500); Lymphocytes Percent Auto 33.5 % (25-40); Mean Corpuscular HGB Conc 34.4 % (30-36); Mean Corpuscular Hemoglobin 31.8 PG (26-34); Mean Corpuscular Volume 92.4 fL (80-100); Monocytes Absolute Auto 400 /uL (0-900); Monocytes Percent Auto 8.5 % (3-14); Neutrophils Absolute Auto 2700 /uL (1500-7000); Neutrophils Percent Auto 52.3 % (50-75); Platelet Count 199 X10^3/uL (150-400); Red Blood Cell Count 4.67 X10^6/uL (4.5-5.9); Red Cell Distribution Width 13.7 % (11.6-14.8); White Blood Cell Count 5.1 X10^3/uL (4.5-11.0)
[2023-11-07 11:30] VITALS: BP 140/80; PULSE 61; RESP 15; O2SAT 96
--- NOTE | 2023-11-07 11:33 | ED_ITS ---
HPI - Chest Pain General Chief Complaint: Chest Pain Stated Complaint: chest pain Time Seen by Provider: 11/07/23 11:04 Source: patient Mode of arrival: Ambulatory Limitations: no limitations History of Present Illness HPI narrative: 58-year-old male who is here for evaluation of approximately 7-10 days of occasional left-sided chest discomfort. He states that it is an ache. Does not worse with palpation or movement or eating. Lasts approximately 30 minutes and then resolves. He has currently not in any discomfort. No cough. No shortness of breath. No fevers. No abdominal pain. No vomiting. Has not tried anything for symptoms. No prior cardiac history. Does have a history of high blood pressure. Related Data Previous Rx's Medication Instructions Recorded chlorthalidone 25 mg tablet 12.5 mg (1/2 x 25 mg) PO DAILY #5 10/01/23 tabs Allergies Allergy/AdvReac Type Severity Reaction Status Date / Time amlodipine Allergy Intermediate horrible Verified 11/07/23 11:04 anxiety lisinopril AdvReac Intermediate Ringing in Verified 11/07/23 11:04 Ears olmesartan AdvReac Ringing in Verified 11/07/23 11:04 ears Review of Systems Review of Systems Narrative: See HPI Patient History Medical History Chronic low back pain Tinnitus of both ears Anxiety about health Screening for prostate cancer Fasting hyperglycemia Essential hypertension History of adenomatous polyp of colon Chronic headaches (2014) Mild intermittent asthma without complication (11/02/15) Hyperlipidemia (11/02/15) Hyperglycemia (11/02/15) Surgical History (Updated 05/11/20 @ 12:11 by Francisco Valles DO) Hx of tonsillectomy Family History (Updated 05/11/20 @ 12:13 by Francisco Valles DO) Father Valvular heart disease History of aortic valve replacement Loud snoring Sleep apnea Hypertension Family/Other Diabetes mellitus Family/Other Asperger syndrome Mother Hypothyroidism (acquired) Social History Smoking Status: Former smoker alcohol intake: former substance use type: does not use Smoking Status: Former smoker alcohol intake frequency: 0-2 drinks per day Substance Use Type: does not use Exam Initial Vital Signs Initial Vital Signs: Vital Signs Temperature 97.8 F 11/07/23 11:01 Pulse Rate 72 11/07/23 11:01 Respiratory Rate 12 11/07/23 11:01 Blood Pressure 172/92 H 11/07/23 11:01 Pulse Oximetry 98 11/07/23 11:01 Oxygen Delivery Method Room Air 11/07/23 11:01 Const General: cooperative, comfortable and No ill appearing HENMT Head: normal to inspection and normocephalic Chest Chest: No crepitus and No tenderness Resp Effort & Inspection: normal respiratory effort Auscultation: clear to auscultation bilaterally Cardio Rate: regular rate Skin General: no rashes or lesions noted Neuro General: patient alert, patient awake and moves all extremities Extrem General: No edema Scores HEART Score Heart Score history: Slightly Suspicious Heart Score EKG: Normal Heart Score Age: 45-64 years old Heart Score risk factors: 1-2 risk factors Heart Score troponin: < or = to normal limit Heart Score Total: 2 Course Orders Ordered: ED Orders 11/07/23 11:00 XR chest 1V Stat EKG-12 Lead Stat 11/07/23 11:10 Complete Blood Count AUTO DIFF Stat Comprehensive Metabolic Panel Stat Lipase Stat Magnesium Stat NT-proBNP (BNP-Adult 18+) Stat PTT Partial Thromboplastin [place] Stat Prothrombin Time INR Stat Troponin & CK Cardiac Panel Stat Discontinued Medications Aspirin (Aspirin 81 Mg Chew Tab) 324 mg PO NOW ONE Stop: 11/07/23 11:01 Last Admin: 11/07/23 11:09 Dose: 324 mg Documented By: CARLOS MANUEL Vital Signs Vital signs: Vital Signs - 8 hr 11/07/23 11:01 11/07/23 11:06 11/07/23 11:13 Temperature 97.8 F Pulse Rate 72 70 65 Respiratory Rate 12 16 19 Blood Pressure 172/92 H Pulse Oximetry 98 97 98 Oxygen Delivery Method Room Air 11/07/23 11:13 11/07/23 11:30 11/07/23 11:30 Temperature Pulse Rate 61 Respiratory Rate 15 Blood Pressure 151/85 H 140/80 Pulse Oximetry 96 Oxygen Delivery Method 11/07/23 12:00 11/07/23 12:00 Temperature Pulse Rate 59 L Respiratory Rate 16 Blood Pressure 138/76 Pulse Oximetry 96 Oxygen Delivery Method MDM - Chest Pain Lab Data Attestation: I reviewed the patient's lab results. 11/07/23 11:10 11/07/23 11:10 Labs: Lab Results 11/07/23 Range/Units 11:10 WBC 5.1 (4.5-11.0) X10^3/uL RBC 4.67 (4.5-5.9) X10^6/uL Hgb 14.9 (13.5-17.5) g/dL Hct 43.2 (41-53) % MCV 92.4 (80-100) fL MCH 31.8 (26-34) PG MCHC 34.4 (30-36) % RDW 13.7 (11.6-14.8) % Plt Count 199 (150-400) X10^3/uL Neut % (Auto) 52.3 (50-75) % Lymph % (Auto) 33.5 (25-40) % [place] % (Auto) 8.5 (3-14) % Eos % (Auto) 4.8 H (2-4) % Baso % (Auto) 0.9 (0-2) % Neut # (Auto) 2700 (5324-5801) /uL Lymph # (Auto) 1700 (9157-8431) /uL [place] # (Auto) 400 (0-900) /uL Eos # (Auto) 200 (0-450) /uL Baso # (Auto) 0 (0-100) /uL PT 11.6 (9.4-12.5) SECONDS INR 1.0 (0.9-1.3) APTT 32 (25.1-36.5) SECONDS Sodium 137 (137-145) mmol/L Potassium 3.8 (3.4-5.1) mmol/L Chloride 100 (98-107) mmol/L Carbon Dioxide 32 (22-32) mmol/L BUN 28 H (9-20) mg/dL Creatinine 1.17 (0.66-1.25) mg/dL Estimated GFR > 60 (>60) mL/min BUN/Creatinine Ratio 23.9 H (6-22) Glucose 109 (80-110) mg/dL Calcium 9.0 (8.4-10.2) mg/dL Magnesium 2.1 (1.6-2.3) mg/dL Total Bilirubin 1.2 (0.2-1.3) mg/dL AST 35 (17-59) IU/L ALT 29 (<50) IU/L Alkaline Phosphatase 41 (38-126) U/L Total Creatine Kinase 169 (55-170) U/L Troponin I < 0.012 (0.01-0.034) ng/mL NT-Pro-B Natriuret Pep < 20 (<125) pg/mL Total Protein 7.2 (6.3-8.2) g/dL Albumin 4.3 (3.5-5.0) g/dL Globulin 2.9 (1.7-4.1) g/dL Albumin/Globulin Ratio 1.5 (1.0-2.8) Lipase 111 (23-300) U/L Imaging Data Chest x-ray: Radiologist's Impression: PROCEDURE: XR CHEST 1V INDICATIONS: chest pain TECHNIQUE: One view of the chest was acquired. [facility], 1:27. [facility], , CHEST 2 VIEW, 10/03/2015, 15:24. FINDINGS: Surgical changes and devices: None. Lungs and pleura: Lungs are clear. No pleural effusions or pneumothorax. Mediastinum: Mediastinal contours appear normal. Heart size is normal. Bones and chest wall: No suspicious bony lesions. Overlying soft tissues appear unremarkable. IMPRESSION: No acute cardiopulmonary abnormality is seen. ECG Data Attestation: I personally reviewed and interpreted this ECG as follows: Interpretation: Sinus rhythm Ventricular rate of 64 Left axis deviation Normal QRS LVH No ST T wave changes MDM Narrative Medical decision making narrative: Nonischemic EKG. Negative troponin. Low risk heart score. Chest x-ray is unremarkable. LFTs and lipase unremarkable. Low suspicion for ACS however we have the patient contact his primary doctor to discuss further risk stratification testing to include a stress test. Patient was given return precautions and follow-up instructions. He expressed understanding and agreement. Discharge Plan Departure Patient Disposition: Home Clinical Impression: Atypical chest pain Instructions: DI for Atypical Chest Pain Activity Restrictions/Additional Instructions: Continue to take all of your medications as directed. I do recommend you contact your primary doctor to discuss further testing to include a stress test. Return to the emergency department for new or worsening symptoms. Prescriptions: No Action chlorthalidone 25 mg tablet 12.5 mg PO DAILY Qty: 5 0RF Referrals: Barry Campoverde MD [Primary Care Provider] - Stand Alone Forms: Patient Portal/API
[2023-11-07 11:34] LABS: Alanine Aminotransferase 29 IU/L (<50); Albumin 4.3 g/dL (3.5-5.0); Albumin Globulin Ratio 1.5 (1.0-2.8); Alkaline Phosphatase 41 U/L (38-126); Aspartate Aminotransferase 35 IU/L (17-59); BUN Creatinine Ratio 23.9 (6-22); Bilirubin Total 1.2 mg/dL (0.2-1.3); Blood Urea Nitrogen 28 mg/dL (9-20); Carbon Dioxide 32 mmol/L (22-32); Chloride 100 mmol/L (98-107); Creatine Kinase 169 U/L (55-170); Estimated Glomerular Filt Rate > 60 mL/min (>60); Globulin 2.9 g/dL (1.7-4.1); Glucose 109 mg/dL (80-110); HEMOLYSIS 28 (0-50); Lipase 111 U/L (23-300); Magnesium 2.1 mg/dL (1.6-2.3); Potassium 3.8 mmol/L (3.4-5.1); Sodium 137 mmol/L (137-145); Total Protein 7.2 g/dL (6.3-8.2)
[2023-11-07 11:46] LABS: NT-proBNP (BNP-Adult 18+) < 20 pg/mL (<125); Troponin I < 0.012 ng/mL (0.01-0.034)
[2023-11-07 12:00] VITALS: BP 138/76; PULSE 59; RESP 16; O2SAT 96
[2023-11-07 12:03] LABS: Prothrombin Time 11.6 SECONDS (9.4-12.5)
[2023-11-07 12:06] LABS: PTT Partial Thromboplastin Tim 32 SECONDS (25.1-36.5)
== END 2023-11-07 12:40 | disposition home or self-care (01) ==
PROVIDERS: Emergency Provider Emergency Medicine; PCP Family Medicine
DX: R07.89 Other chest pain (principal)
CPT/HCPCS: 36415; 71045; 80053; 82550; 83690; 83735; 83880; 84484; 85025; 85610; 85730; 93005; 99284

== ENCOUNTER → 2024-01-07 15:56 | Outpatient (CLI) | payer OTHER, SELFPAY ==
--- NOTE | 2024-01-07 15:57 | DI.RAD.S_ITS ---
PROCEDURE: XR KNEE RT 3V INDICATIONS: Fell 2 weeks ago - hematoma pretibial area - knee pain TECHNIQUE: 3 views of the knee were acquired. COMPARISON: None. FINDINGS: Bones: No fractures or dislocations. No suspicious bony lesions. There is some mild tricompartmental osteoarthritic degenerative change present. Soft tissues: No joint effusion. There is some mild soft tissue swelling over the tibial tubercle region. IMPRESSION: 1. No evidence for acute osseous abnormality involving the right knee. 2. 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 3. Soft tissue swelling over the tibial tubercle region consistent with the patient's history of recent trauma. Dictated by: Ra Tobias M.D. on 01/08/2024 at 9:16 Approved by: Ra Tobias M.D. on 01/08/2024 at 9:18
== END ==
PROVIDERS: PCP Family Medicine; Referring Provider Family Medicine; Visit Provider Physician Assistant
DX: M25.561 Pain in right knee (principal); M79.89 Other specified soft tissue disorders
CPT/HCPCS: 73562

== ENCOUNTER 2024-05-20 08:04 | Day surgery (SDC) | payer OTHER, SELFPAY ==
[2024-05-20 08:22] VITALS: BP 153/96; PULSE 92; RESP 16; TEMP 36.2; O2SAT 98
--- NOTE | 2024-05-20 08:24 | PM.HP.1 ---
History of Present Illness History of Present Illness Date Patient Seen: 05/20/24 Time Patient Seen: 08:24 Chief complaint: Colonoscopy Narrative: Guillermo is a 58 year old man here for a colonoscopy. His last was about 2016 and he thinks some polyps were removed. No family history of colon cancer. [facility] Medical History Chronic low back pain Tinnitus of both ears Anxiety about health Screening for prostate cancer Fasting hyperglycemia Essential hypertension History of adenomatous polyp of colon Chronic headaches (2014) Mild intermittent asthma without complication (11/02/15) Hyperlipidemia (11/02/15) Hyperglycemia (11/02/15) Surgical History (Updated 05/11/20 @ 12:11 by Francisco Valles DO) Hx of tonsillectomy Family History (Updated 05/11/20 @ 12:13 by Francisco Valles DO) Father Valvular heart disease History of aortic valve replacement Loud snoring Sleep apnea Hypertension Family/Other Diabetes mellitus Family/Other Asperger syndrome Mother Hypothyroidism (acquired) Social History Smoking Status: Former smoker alcohol intake: current substance use type: does not use Meds Home Medications and Allergies Home Medications Medication Instructions Recorded Confirmed Type chlorthalidone 25 mg tablet 25 mg PO DAILY #90 tabs 12/15/23 05/20/24 Rx Allergies Allergy/AdvReac Type Severity Reaction Status Date / Time amlodipine Allergy Intermediate horrible Verified 01/07/24 15:30 anxiety lisinopril AdvReac Intermediate Ringing in Verified 01/07/24 15:30 Ears olmesartan AdvReac Ringing in Verified 01/07/24 15:30 ears Exam Const General: healthy appearing Resp Effort & Inspection: normal respiratory effort Assessment & Plan Assessment and plan (1) History of adenomatous polyp of colon: Status: Inactive Plan Colonoscopy Time-Based Coding :: [TOTAL MINUTES] spent with patient and on the chart (including review of chart, obtaining history, exam, reviewing outside data, placing orders, documenting exam and treatment plan, and counseling patient) on [DATE].
[2024-05-20] MEDS: SODIUM CHLORIDE 0.9% 1,000 ML 84 ML IV (08:25)
--- NOTE | 2024-05-20 09:13 | PM.OP.COLON ---
Operative Date/Time/Diagnoses Date of procedure: 05/20/24 Time of procedure: 09:13 Pre-op diagnosis: Colon cancer screening Post-op diagnosis: same Procedure & Clinicians Study performed: Colonoscopy Same procedure as scheduled: Yes Surgeon: Fam Bustamante Procedure Notes Procedure in detail: Surgeon: Fam Bustamante MD Anesthesia: Adelfo Siddiqui DO Procedure: The patient was brought to the endoscopy suite, placed in left lateral decubitus position. The patient was connected to monitoring devices. A time-out was performed. Sedation was administered. Once the patient was adequately sedated, a digital rectal exam was performed and was normal. The scope was then inserted and advanced to the cecum where the appendiceal orifice was identified and photographed. The scope was then slowly withdrawn over greater than 6 minutes. The mucosa was thoroughly inspected. No abnormalities were identified. The scope was retroflexed in the rectum. The scope was straightened and removed. The patient was awakened and brought to recovery. Scope withdrawal time: 7 minutes Sedation time: 11 minute EBL: 0 Findings: Normal colon Post-procedure Recommendations: Colonoscopy in 10 years Disposition: PACU
[2024-05-20 09:15] VITALS: BP 106/68; PULSE 56; RESP 18; TEMP 37.1; O2SAT 96
[2024-05-20 09:23] VITALS: BP 105/67; PULSE 54; RESP 15; TEMP 36.9; O2SAT 96
[2024-05-20 09:27] VITALS: BP 110/65; PULSE 59; RESP 15; TEMP 36.9; O2SAT 98
== END 2024-05-20 09:38 | disposition home or self-care (01) ==
PROVIDERS: PCP Family Medicine; Referring Provider Surgery; Visit Provider Surgery
PROC: 0DJD8ZZ Inspection of Lower Intestinal Tract, Via Natural or Artificial Opening Endoscopic (ICD-10-PCS; CPT 45378; principal; 2024-05-20 09:00)
DX: Z12.11 Encounter for screening for malignant neoplasm of colon (principal)
CPT/HCPCS: 45378; J2704

== ENCOUNTER → 2024-10-27 08:32 | Outpatient (CLI) | payer OTHER, SELFPAY ==
[2024-10-27 09:36] LABS: Add Manual Diff / Slide Review NO; Basophils Absolute Auto 0 /uL (0-100); Basophils Percent Auto 0.9 % (0-2); Eosinophils Absolute Auto 300 /uL (0-450); Eosinophils Percent Auto 5.7 % (2-4); Lymphocytes Absolute Auto 1900 /uL (1100-4500); Lymphocytes Percent Auto 42.4 % (25-40); Mean Corpuscular HGB Conc 34.8 % (30-36); Mean Corpuscular Hemoglobin 32.1 PG (26-34); Mean Corpuscular Volume 92.1 fL (80-100); Monocytes Absolute Auto 300 /uL (0-900); Monocytes Percent Auto 6.7 % (3-14); Neutrophils Absolute Auto 2000 /uL (1500-7000); Neutrophils Percent Auto 44.3 % (50-75); Platelet Count 188 X10^3/uL (150-400); Red Blood Cell Count 4.99 X10^6/uL (4.5-5.9); Red Cell Distribution Width 13.7 % (11.6-14.8); White Blood Cell Count 4.4 X10^3/uL (4.5-11.0)
[2024-10-27 10:08] LABS: HEMOLYSIS < 15 (0-50); Iron 104 ug/dL (49-181)
[2024-10-27 10:09] LABS: Alanine Aminotransferase 29 IU/L (<50); Albumin 4.7 g/dL (3.5-5.0); Albumin Globulin Ratio 1.8 (1.0-2.8); Alkaline Phosphatase 64 U/L (38-126); Aspartate Aminotransferase 30 IU/L (17-59); Bilirubin Total 1.2 mg/dL (0.2-1.3); Blood Urea Nitrogen 29 mg/dL (9-20); Calcium 9.8 mg/dL (8.4-10.2); Carbon Dioxide 29 mmol/L (22-32); Chloride 99 mmol/L (98-107); Cholesterol 222 mg/dL (140-199); Estimated Glomerular Filt Rate > 60 mL/min (>60); Gamma Glutamyl Transpeptidase 21 U/L (15-73); Globulin 2.6 g/dL (1.7-4.1); Glucose 123 mg/dL (70-99); HDL Cholesterol 65 mg/dL (40-60); HEMOLYSIS < 15 (0-50); LDL Cholesterol Calculated 136 mg/dL (<100); Phosphorous 3.2 mg/dL (2.3-3.7); Potassium 3.4 mmol/L (3.4-5.1); Sodium 138 mmol/L (137-145); Total Protein 7.3 g/dL (6.3-8.2); Triglycerides 105 mg/dL (35-150)
[2024-10-27 10:18] LABS: Percent Iron Saturation 35 % (20-50); Total Iron Binding Capacity 294 ug/dL (261-462); Transferrin 258 mg/dL (206-381)
[2024-10-27 10:32] LABS: Prostate Specific Antigen Scrn 1.34 ng/mL (0.1-4.0)
[2024-10-27 10:36] LABS: Ferritin 286 ng/mL (18-464)
[2024-10-28 04:08] LABS: CRP, High Sensitivity 1.62 mg/L (0.00-3.00)
[2024-10-28 04:40] LABS: Homocysteine 12.8 umol/L (0.0-17.2)
[2024-10-28 08:09] LABS: C Peptide 2.9 ng/mL (1.1-4.4); Insulin Level Total 13.6 uIU/mL (2.6-24.9)
== END ==
PROVIDERS: PCP Family Medicine; Referring Provider Family Medicine; Visit Provider Family Medicine
DX: Z00.00 Encounter for general adult medical examination without abnormal findings (principal); R73.01 Impaired fasting glucose; I10 Essential (primary) hypertension; Z12.5 Encounter for screening for malignant neoplasm of prostate; R73.9 Hyperglycemia, unspecified; J45.20 Mild intermittent asthma, uncomplicated; E78.00 Pure hypercholesterolemia, unspecified; Z86.0100 Personal history of colon polyps, unspecified
CPT/HCPCS: 36415; 80053; 80061; 82627; 82728; 82977; 83090; 83525; 83540; 83550; 83735; 84100; 84402; 84403; 84443; 84681; 85025; 86140; G0103

== ENCOUNTER → 2024-11-23 16:37 | Outpatient (CLI) | payer OTHER, SELFPAY ==
--- NOTE | 2024-11-23 16:38 | DI.CT.S_ITS ---
PROCEDURE: CT HEAD/BRAIN WO CON INDICATIONS: fall, headaches, imbalance TECHNIQUE: Noncontrast 4.5 mm thick angled axial sections acquired from the foramen magnum to the vertex, with coronal and sagittal reformats. For radiation dose reduction, the following was used: automated exposure control, adjustment of mA and/or kV according to patient size. COMPARISON: None. FINDINGS: Image quality: Diagnostic. CSF spaces: Basal cisterns are patent. No extra-axial fluid collections. The ventricles are symmetric in size and shape. Brain: No acute intracranial hemorrhage or mass effect. There is cerebral volume loss, with resultant ventricular and sulcal prominence. There are periventricular and deep white matter chronic small vessel ischemic changes. There is intracranial internal carotid artery atherosclerosis. Skull and face: Calvarium and visualized facial bones appear intact, without suspicious lesions. Sinuses: Visualized sinuses and mastoids are clear. IMPRESSION: No acute intracranial pathology. Approved by: Zhao Lin M.D. on 11/23/2024 at 16:54
== END ==
PROVIDERS: PCP Family Medicine; Referring Provider Family Medicine; Visit Provider Family Medicine
DX: S09.90XA Unspecified injury of head, initial encounter (principal); R51.9 Headache, unspecified; R26.89 Other abnormalities of gait and mobility; I65.29 Occlusion and stenosis of unspecified carotid artery
CPT/HCPCS: 70450

== ENCOUNTER → 2025-03-29 08:33 | Outpatient (CLI) | payer OTHER, SELFPAY ==
[2025-03-29 09:22] LABS: Add Manual Diff / Slide Review NO; Hematocrit 44.1 % (41-53); Hemoglobin 15.2 g/dL (13.5-17.5); Lymphocytes Absolute Auto 1900 /uL (1100-4500); Mean Corpuscular HGB Conc 34.3 % (30-36); Mean Corpuscular Hemoglobin 31.7 PG (26-34); Mean Corpuscular Volume 92.3 fL (80-100); Platelet Count 182 X10^3/uL (150-400)
[2025-03-29 09:52] LABS: Alanine Aminotransferase 37 IU/L (<50); Albumin 4.4 g/dL (3.5-5.0); Albumin Globulin Ratio 1.8 (1.0-2.8); Alkaline Phosphatase 38 U/L (38-126); Blood Urea Nitrogen 26 mg/dL (9-20); Calcium 9.4 mg/dL (8.4-10.2); Carbon Dioxide 25 mmol/L (22-32); Chloride 105 mmol/L (98-107); Cholesterol 152 mg/dL (140-199); Estimated Glomerular Filt Rate > 60 mL/min (>60); Globulin 2.5 g/dL (1.7-4.1); Glucose 125 mg/dL (70-99); HDL Cholesterol 70 mg/dL (40-60); HEMOLYSIS < 15 (0-50); Potassium 4.1 mmol/L (3.4-5.1); Sodium 138 mmol/L (137-145); Total Protein 6.9 g/dL (6.3-8.2); Triglycerides 89 mg/dL (35-150)
== END ==
PROVIDERS: PCP Family Medicine; Referring Provider Family Medicine; Visit Provider Family Medicine
DX: R73.01 Impaired fasting glucose (principal); I10 Essential (primary) hypertension; R51.9 Headache, unspecified; I65.29 Occlusion and stenosis of unspecified carotid artery; H93.13 Tinnitus, bilateral; S06.0XAA Concussion with loss of consciousness status unknown, initial encounter
CPT/HCPCS: 36415; 80053; 80061; 82172; 85025